=== PATIENT | female | born 1985 | race Caucasian/White ===

== ENCOUNTER 2020-06-27 12:23 | Emergency (ER) | payer OTHER ==
[2020-06-27 12:28] VITALS: TEMP 98.1
--- NOTE | 2020-06-27 12:40 | ED ---
Psych HPI - General Chief Complaint: Anxiety Stated Complaint: Court Order Time Seen by Provider: 06/27/20 12:26 Source: patient, police, RN notes reviewed, old records reviewed Mode of arrival: ambulatory - History of Present Illness Initial Comments: This is a 35-year-old female presenting with PD for psychiatric evaluation patient admits to significant recent family stressors, and patient admits also being very angry as of late. She denies any homicidal or suicidal thoughts currently, denies any drugs or alcohol no history of psychiatric illness. MD Complaint: other ([place] reaction) -: days(s) Associated Psychiatric Symptoms: racing thoughts History of same: No Quality: constant, other (Seems to be improving) Improves With: none Worsens With: none Context: significant life stressor Associated Symptoms: denies other symptoms Treatments Prior to Arrival: placed on mental health hold - Related Data Home Medications Medication Instructions Recorded Confirmed Insulin Glargine,Hum.rec.anlog 48 unit SQ BID 06/27/20 06/27/20 [Basaglar Kwikpen U-100] Insulin Lispro [Admelog] See Protocol SQ AC-TID 06/27/20 06/27/20 Allergies Allergy/AdvReac Type Severity Reaction Status Date / Time No Known Allergies Allergy Verified 06/27/20 13:25 Review of Systems ROS Statement: Those systems with pertinent positive or pertinent negative responses have been documented in the HPI. ROS Other: All systems not noted in ROS Statement are negative. Past Medical History Past Medical History: Diabetes Mellitus History of Any Multi-Drug Resistant Organisms: None Reported Past Surgical History: No Surgical Hx Reported Past Psychological History: No Psychological Hx Reported Smoking Status: Current every day smoker Past Alcohol Use History: None Reported Past Drug Use History: None Reported General Exam Limitations: no limitations General appearance: alert, in no apparent distress Head exam: Present: atraumatic, normocephalic, normal inspection Eye exam: Present: normal appearance, PERRL, EOMI. Absent: scleral icterus, conjunctival injection, periorbital swelling ENT exam: Present: normal exam, mucous membranes moist Neck exam: Present: normal inspection. Absent: tenderness, meningismus, lymphadenopathy Respiratory exam: Present: normal lung sounds bilaterally. Absent: respiratory distress, wheezes, rales, rhonchi, stridor Cardiovascular Exam: Present: regular rate, normal rhythm, normal heart sounds. Absent: systolic murmur, diastolic murmur, rubs, gallop, clicks GI/Abdominal exam: Present: soft, normal bowel sounds. Absent: distended, tenderness, guarding, rebound, rigid Extremities exam: Present: normal inspection, full ROM, normal capillary refill. Absent: tenderness, pedal edema, joint swelling, calf tenderness Back exam: Present: normal inspection Neurological exam: Present: alert, oriented X3, CN II-XII intact Psychiatric exam: Present: normal affect, normal mood Skin exam: Present: warm, dry, intact, normal color. Absent: rash Course Vital Signs 06/27/20 06/27/20 12:26 13:04 Temperature 98.1 F Pulse Rate 114 H Respiratory 20 16 Rate Blood Pressure 120/74 O2 Sat by Pulse 99 Oximetry - Reevaluation(s) Reevaluation #1: 06/27/20 12:48 Medical records reviewed Reevaluation #2: 06/27/20 12:48 Clear for psychiatric evaluation Medical Decision Making - Medical Decision Making 35 female she was seen and evaluated psychiatry needs stable for discharge home not currently homicidal or suicidal - Lab Data Lab Results 06/27/20 06/27/20 Range/Units 13:15 15:40 POC Glucose (mg/dL) 276 H (75-99) mg/dL POC Glu Independent Jeweler ID Shasha Pereyra Urine Opiates Screen Not Detected (NotDetected) Ur Oxycodone Screen Not Detected (NotDetected) Urine Methadone Screen Not Detected (NotDetected) Ur Propoxyphene Screen Not Detected (NotDetected) Ur Barbiturates Screen Not Detected (NotDetected) U Tricyclic Antidepress Not Detected (NotDetected) Ur Phencyclidine Scrn Not Detected (NotDetected) Ur Amphetamines Screen Detected H (NotDetected) U Methamphetamines Scrn Detected H (NotDetected) U Benzodiazepines Scrn Detected H (NotDetected) Urine Cocaine Screen Not Detected (NotDetected) U Marijuana (THC) Screen Not Detected (NotDetected) Disposition Clinical Impression: Acute anxiety Disposition: HOME SELF-CARE Condition: Fair Instructions (If sedation given, give patient instructions): Generalized Anxiety Disorder (ED) Is patient prescribed a controlled substance at d/c from ED?: No Referrals: None,Stated [Primary Care Provider] - 1-2 days
[2020-06-27 13:07] VITALS: RESP 16
[2020-06-27 14:06] LABS: Amphetamine Screen,Urine Detected (NotDetected); Benzodiazepines Screen,Urine Detected (NotDetected); Cocaine Screen,Urine Not Detected (NotDetected); Opiate Screen,Urine Not Detected (NotDetected); Phencyclidine Screen,Urine Not Detected (NotDetected); Urn Cannabinoid Scrn Not Detected (NotDetected)
[2020-06-27 14:07] LABS: Barbiturate Screen,Urine Not Detected (NotDetected); Methadone Screen, Urine Not Detected (NotDetected); Oxycodone Screen, Urine Not Detected (NotDetected); Tricyclic Antidepressant,Urine Not Detected (NotDetected)
[2020-06-27 15:44] LABS: Glucose,Whole Blood 276 mg/dL (75-99)
[2020-06-27 16:02] VITALS: BP 123/77; PULSE 104
== END 2020-06-27 16:00 | disposition home or self-care (01) ==
LOC: EC 12:23
DX: F41.9 Anxiety disorder, unspecified (principal); E11.9 Type 2 diabetes mellitus without complications; F17.200 Nicotine dependence, unspecified, uncomplicated; Z79.4 Long term (current) use of insulin
CPT/HCPCS: 36415; 80306; 82075; 99284

== ENCOUNTER → 2020-10-15 | Outpatient (CLI) | payer OTHER ==
--- NOTE | 2020-10-15 11:13 | MM ---
Reason for exam: clinical finding. History: Family history of breast cancer in aunt at age 41. Physical Findings: Nurse Summary: 1 x 1cm nodule in the left beast at 11 o'clock, a 1 x 1.5cm nodule in the right breast at 12 o'clock, a 1 x 1.5cm nodule in the left breast at 11 o'clock and a 1 x 1cm nodule in the left breast at 1 o'clock (nurse ts). [facility] Diagnostic Mammo w CAD [place] Bilateral CC and MLO view(s) were taken. The breast tissue is extremely dense which could obscure a lesion on mammography. There is no discrete abnormality. These results were verbally communicated with the patient and result sheet given to the patient on 10/15/20. ASSESSMENT: Incomplete: need additional imaging evaluation, BI-RAD 0 RECOMMENDATION: Ultrasound of both breasts. (bilateral palpable)
--- NOTE | 2020-10-15 11:14 | USB ---
Reason for exam: additional evaluation requested from abnormal screening. History: Family history of breast cancer in aunt at age 41. US Breast BILAT Right complete breast ultrasound includes all four quadrants, the retroareolar region and axilla. Finding demonstrates a 0.4 x 0.3 x 0.3cm cystic lesion at 9 o'clock and a 0.5 x 0.4 x 0.6cm cystic cluster at 10 o'clock. Overall fibrocystic change. Left complete breast ultrasound includes all four quadrants, the retroareolar region and axilla. Finding demonstrates no cystic or solid lesion seen. These results were verbally communicated with the patient and result sheet given to the patient on 10/15/20. ASSESSMENT: Benign, BI-RAD 2 RECOMMENDATION: Routine screening mammogram of both breasts at age 40. Manage patient on a clinical basis.
== END | disposition home or self-care (01) ==
LOC: RADMAMWWP 09:10
PROVIDERS: ATTEND Family Medicine
DX: N63.20 Unspecified lump in the left breast, unspecified quadrant (principal); N63.10 Unspecified lump in the right breast, unspecified quadrant; R92.8 Other abnormal and inconclusive findings on diagnostic imaging of breast
CPT/HCPCS: 77066

== ENCOUNTER 2020-10-27 21:57 | Inpatient (IN) | payer MEDICAID, OTHER ==
[2020-10-27 22:35] LABS: Glucose,Whole Blood 313 mg/dL (75-99)
--- NOTE | 2020-10-27 22:46 | ED ---
Psych HPI <Tmo Juarez - Last Filed: 10/28/20 05:15> - General Source: patient, EMS Mode of arrival: EMS <Cecy Mooney - Last Filed: 10/28/20 19:47> - General Chief Complaint: Psychiatric Symptoms Stated Complaint: Mental Health Time Seen by Provider: 10/27/20 22:05 - History of Present Illness Initial Comments: 35yo female with hx of drug abuse presenting for mental health evaluation/delusional thoughts. pt petitioned by daughter who states that her mother has been delusional for years, making false accusations and paranoid behaviors. she states that these delusions are increasing and she petitioned patient. pt denies suicidal or homicidal ideations. denies physical complaints and states she is only here because she is forced to. pt admits to relapsing. Denies overdose or suicide attempt. (Cecy Mooney) - Related Data Home Medications Medication Instructions Recorded Confirmed INSULIN ASPART (NovoLOG) [NovoLOG See Protocol SQ AC-TID 10/27/20 10/27/20 (formulary)] Insulin Glargine [Lantus] 25 unit SQ BID 10/27/20 10/27/20 Allergies Allergy/AdvReac Type Severity Reaction Status Date / Time No Known Allergies Allergy Verified 10/27/20 23:19 Review of Systems ROS Other: All systems not noted in ROS Statement are negative. <VickTom sanches - Last Filed: 10/28/20 05:15> ROS Other: All systems not noted in ROS Statement are negative. <Cecy Mooney - Last Filed: 10/28/20 19:47> ROS Statement: Those systems with pertinent positive or pertinent negative responses have been documented in the HPI. Past Medical History Past Medical History: Diabetes Mellitus History of Any Multi-Drug Resistant Organisms: None Reported Past Surgical History: No Surgical Hx Reported Past Psychological History: No Psychological Hx Reported Smoking Status: Current every day smoker Past Alcohol Use History: None Reported Past Drug Use History: Methamphetamine <Cecy Mooney - Last Filed: 10/28/20 19:47> General Exam Limitations: no limitations <Cecy Mooney - Last Filed: 10/28/20 19:47> - General Exam Comments Initial Comments: General: The patient is awake and alert, in no distress Eye: Pupils are equal, round and reactive to light, extra-ocular movements are intact. No nystagmus. There is normal conjunctiva bilaterally. No signs of icterus. Ears, nose, mouth and throat: There are moist mucous membranes and no oral lesions. Neck: The neck is supple, there is no tenderness or JVD. Cardiovascular: There is a regular rate and rhythm. No murmur, rub or gallop is appreciated. Respiratory: Lungs are clear to auscultation, respirations are non-labored, breath sounds are equal. No wheezes, stridor, rales, or rhonchi. Gastrointestinal: Soft, non-distended, non-tender abdomen without masses or organomegaly noted. There is no rebound or guarding present. Musculoskeletal: Normal ROM, no tenderness. Strength 5/5. Sensation intact. Radial pulses equal bilaterally 2+. Neurological: A&O x 3. CN II-XII intact, There are no obvious motor or sensory deficits. Coordination appears grossly intact. Speech is normal. Skin: Skin is warm and dry and no rashes or lesions are noted. Psychiatric: Cooperative, delusional thoughts, thinks people are altering at home camera footage ect (Cecy Mooney) Course <Cecy Mooney - Last Filed: 10/28/20 19:47> Vital Signs 10/27/20 10/28/20 10/28/20 22:15 03:25 05:45 Temperature 98.1 F 97.3 F L Pulse Rate 113 H 98 99 Respiratory 18 18 18 Rate Blood Pressure 149/81 104/59 119/56 O2 Sat by Pulse 96 96 96 Oximetry - Reevaluation(s) Reevaluation #1: pt hydrated, given insulin, pt glucose improved. gap was initially wnl. suspected starvation ketosis rather than DKA or HUS. pt medically cleared eps, discussed case with Dr. Juarez who is agreeable. 10/28/20 01:39 (Cecy Mooney) Medical Decision Making - Lab Data Result diagrams: 10/27/20 23:12 10/27/20 23:12 <Tom Juarez - Last Filed: 10/28/20 05:15> - Lab Data Result diagrams: 10/28/20 12:32 10/28/20 12:32 <Cecy Mooney - Last Filed: 10/28/20 19:47> - Medical Decision Making I did see the patient with intent of fine clinical certification, patient is not forthcoming at exam (Tom Juarez) - Lab Data Lab Results 10/27/20 10/27/20 10/27/20 Range/Units 22:33 22:36 22:36 WBC (3.8-10.6) k/uL RBC (3.80-5.40) m/uL Hgb (11.4-16.0) gm/dL Hct (34.0-46.0) % MCV (80.0-100.0) fL MCH (25.0-35.0) pg MCHC (31.0-37.0) g/dL RDW (11.5-15.5) % Plt Count (150-450) k/uL MPV Neutrophils % % Lymphocytes % % Monocytes % % Eosinophils % % Basophils % % Neutrophils # (1.3-7.7) k/uL Lymphocytes # (1.0-4.8) k/uL Monocytes # (0-1.0) k/uL Eosinophils # (0-0.7) k/uL Basophils # (0-0.2) k/uL Sodium (137-145) mmol/L Potassium (3.5-5.1) mmol/L Chloride (98-107) mmol/L Carbon Dioxide (22-30) mmol/L Anion Gap mmol/L BUN (7-17) mg/dL Creatinine (0.52-1.04) mg/dL Est GFR (CKD-EPI)AfAm (>60 ml/min/1.73 sqM) Est GFR (CKD-EPI)NonAf (>60 ml/min/1.73 sqM) Glucose (74-99) mg/dL POC Glucose (mg/dL) 313 H (75-99) mg/dL POC Glu Obstetrics Gyn ID Diana Peterson Calcium (8.4-10.2) mg/dL Phosphorus (2.5-4.5) mg/dL Magnesium (1.6-2.3) mg/dL Total Bilirubin (0.2-1.3) mg/dL AST (14-36) U/L ALT (4-34) U/L Alkaline Phosphatase (38-126) U/L Total Protein (6.3-8.2) g/dL Albumin (3.5-5.0) g/dL Urine Color Yellow Urine Appearance Cloudy H (Clear) Urine pH 5.5 (5.0-8.0) Ur Specific [place] 1.040 H (1.001-1.035) Urine Protein Trace H (Negative) Urine Glucose (UA) 4+ H (Negative) Urine Ketones 2+ H (Negative) Urine Blood Negative (Negative) Urine Nitrite Positive H (Negative) Urine Bilirubin Negative (Negative) Urine Urobilinogen <2.0 (<2.0) mg/dL Ur Leukocyte Esterase Trace H (Negative) Urine RBC 1 (0-5) /hpf Urine WBC 12 H (0-5) /hpf Ur Squamous Epith Cells 6 H (0-4) /hpf Urine Bacteria Many H (None) /hpf Urine Mucus Moderate H (None) /hpf Urine HCG, Qual Not Detected (Not Detectd) Urine Opiates Screen Not Detected (NotDetected) Ur Oxycodone Screen Not Detected (NotDetected) Urine Methadone Screen Not Detected (NotDetected) Ur Propoxyphene Screen Not Detected (NotDetected) Ur Barbiturates Screen Not Detected (NotDetected) U Tricyclic Antidepress Not Detected (NotDetected) Ur Phencyclidine Scrn Not Detected (NotDetected) Ur Amphetamines Screen Detected H (NotDetected) U Methamphetamines Scrn Detected H (NotDetected) U Benzodiazepines Scrn Not Detected (NotDetected) Urine Cocaine Screen Not Detected (NotDetected) U Marijuana (THC) Screen Not Detected (NotDetected) Acetone, Qual (Negative) Coronavirus (PCR) (Not Detectd) 10/27/20 10/27/20 10/28/20 Range/Units 23:12 23:12 00:06 WBC 9.6 (3.8-10.6) k/uL RBC 4.90 (3.80-5.40) m/uL Hgb 14.1 (11.4-16.0) gm/dL Hct 42.3 (34.0-46.0) % MCV 86.3 (80.0-100.0) fL MCH 28.8 (25.0-35.0) pg MCHC 33.4 (31.0-37.0) g/dL RDW 12.6 (11.5-15.5) % Plt Count 389 (150-450) k/uL MPV 7.3 Neutrophils % 69 % Lymphocytes % 25 % Monocytes % 4 % Eosinophils % 1 % Basophils % 0 % Neutrophils # 6.6 (1.3-7.7) k/uL Lymphocytes # 2.4 (1.0-4.8) k/uL Monocytes # 0.4 (0-1.0) k/uL Eosinophils # 0.1 (0-0.7) k/uL Basophils # 0.0 (0-0.2) k/uL Sodium 134 L (137-145) mmol/L Potassium 4.1 (3.5-5.1) mmol/L Chloride 104 (98-107) mmol/L Carbon Dioxide 21 L (22-30) mmol/L Anion Gap 9 mmol/L BUN 15 (7-17) mg/dL Creatinine 0.42 L (0.52-1.04) mg/dL Est GFR (CKD-EPI)AfAm >90 (>60 ml/min/1.73 sqM) Est GFR (CKD-EPI)NonAf >90 (>60 ml/min/1.73 sqM) Glucose 282 H (74-99) mg/dL POC Glucose (mg/dL) 239 H (75-99) mg/dL POC Glu Obstetrics Gyn ID Patricia Upton Calcium 9.7 (8.4-10.2) mg/dL Phosphorus 3.6 (2.5-4.5) mg/dL Magnesium 1.7 (1.6-2.3) mg/dL Total Bilirubin 0.5 (0.2-1.3) mg/dL AST 21 (14-36) U/L ALT 19 (4-34) U/L Alkaline Phosphatase 141 H (38-126) U/L Total Protein 7.7 (6.3-8.2) g/dL Albumin 4.3 (3.5-5.0) g/dL Urine Color Urine Appearance (Clear) Urine pH (5.0-8.0) Ur Specific [place] (1.001-1.035) Urine Protein (Negative) Urine Glucose (UA) (Negative) Urine Ketones (Negative) Urine Blood (Negative) Urine Nitrite (Negative) Urine Bilirubin (Negative) Urine Urobilinogen (<2.0) mg/dL Ur Leukocyte Esterase (Negative) Urine RBC (0-5) /hpf Urine WBC (0-5) /hpf Ur Squamous Epith Cells (0-4) /hpf Urine Bacteria (None) /hpf Urine Mucus (None) /hpf Urine HCG, Qual (Not Detectd) Urine Opiates Screen (NotDetected) Ur Oxycodone Screen (NotDetected) Urine Methadone Screen (NotDetected) Ur Propoxyphene Screen (NotDetected) Ur Barbiturates Screen (NotDetected) U Tricyclic Antidepress (NotDetected) Ur Phencyclidine Scrn (NotDetected) Ur Amphetamines Screen (NotDetected) U Methamphetamines Scrn (NotDetected) U Benzodiazepines Scrn (NotDetected) Urine Cocaine Screen (NotDetected) U Marijuana (THC) Screen (NotDetected) Acetone, Qual Positive (Negative) Coronavirus (PCR) (Not Detectd) 10/28/20 10/28/20 Range/Units 01:33 04:26 WBC (3.8-10.6) k/uL RBC (3.80-5.40) m/uL Hgb (11.4-16.0) gm/dL Hct (34.0-46.0) % MCV (80.0-100.0) fL MCH (25.0-35.0) pg MCHC (31.0-37.0) g/dL RDW (11.5-15.5) % Plt Count (150-450) k/uL MPV Neutrophils % % Lymphocytes % % Monocytes % % Eosinophils % % Basophils % % Neutrophils # (1.3-7.7) k/uL Lymphocytes # (1.0-4.8) k/uL Monocytes # (0-1.0) k/uL Eosinophils # (0-0.7) k/uL Basophils # (0-0.2) k/uL Sodium (137-145) mmol/L Potassium (3.5-5.1) mmol/L Chloride (98-107) mmol/L Carbon Dioxide (22-30) mmol/L Anion Gap mmol/L BUN (7-17) mg/dL Creatinine (0.52-1.04) mg/dL Est GFR (CKD-EPI)AfAm (>60 ml/min/1.73 sqM) Est GFR (CKD-EPI)NonAf (>60 ml/min/1.73 sqM) Glucose (74-99) mg/dL POC Glucose (mg/dL) 160 H (75-99) mg/dL POC Glu Obstetrics Gyn ID Patricia Upton Calcium (8.4-10.2) mg/dL Phosphorus (2.5-4.5) mg/dL Magnesium (1.6-2.3) mg/dL Total Bilirubin (0.2-1.3) mg/dL AST (14-36) U/L ALT (4-34) U/L Alkaline Phosphatase (38-126) U/L Total Protein (6.3-8.2) g/dL Albumin (3.5-5.0) g/dL Urine Color Urine Appearance (Clear) Urine pH (5.0-8.0) Ur Specific [place] (1.001-1.035) Urine Protein (Negative) Urine Glucose (UA) (Negative) Urine Ketones (Negative) Urine Blood (Negative) Urine Nitrite (Negative) Urine Bilirubin (Negative) Urine Urobilinogen (<2.0) mg/dL Ur Leukocyte Esterase (Negative) Urine RBC (0-5) /hpf Urine WBC (0-5) /hpf Ur Squamous Epith Cells (0-4) /hpf Urine Bacteria (None) /hpf Urine Mucus (None) /hpf Urine HCG, Qual (Not Detectd) Urine Opiates Screen (NotDetected) Ur Oxycodone Screen (NotDetected) Urine Methadone Screen (NotDetected) Ur Propoxyphene Screen (NotDetected) Ur Barbiturates Screen (NotDetected) U Tricyclic Antidepress (NotDetected) Ur Phencyclidine Scrn (NotDetected) Ur Amphetamines Screen (NotDetected) U Methamphetamines Scrn (NotDetected) U Benzodiazepines Scrn (NotDetected) Urine Cocaine Screen (NotDetected) U Marijuana (THC) Screen (NotDetected) Acetone, Qual (Negative) Coronavirus (PCR) Not Detected (Not Detectd) Disposition <Tom Juarez - Last Filed: 10/28/20 05:15> Is patient prescribed a controlled substance at d/c from ED?: No Time of Disposition: 19:46 Decision to Admit Reason: Admit from EC Decision Date: 10/28/20 Decision Time: 19:46 <Cecy Mooney - Last Filed: 10/28/20 19:47> Clinical Impression: Psychosis Disposition: TRANSFER TO PSYCH HOSP/UNIT Condition: Serious
[2020-10-27 22:48] LABS: Appearance,Urine Cloudy (Clear); Bacteria,Urine Many /hpf; Bilirubin,Urine Negative (Negative); Blood,Urine Negative (Negative); Color,Urine Yellow; Glucose,Urine (UA) 4+ (Negative); Leukocyte Esterase,Urine Trace (Negative); Mucus,Urine Moderate /hpf; Nitrite,Urine Positive (Negative); PH, Urine 5.5 (5.0-8.0); Protein,Urine Trace (Negative); RBC,Urine 1 /hpf (0-5); Squamous Epithelial Cell,Urine 6 /hpf (0-4); Urobilinogen,Urine <2.0 mg/dL (<2.0); WBC,Urine 12 /hpf (0-5)
[2020-10-27 22:55] LABS: Ketones,Urine 2+ (Negative)
[2020-10-27] MEDS ORDERED: cefTRIAXone IN SWFI 1,000 MG/10 ML SYRINGE IVP STA (22:57)
[2020-10-27] MEDS ORDERED: SODIUM CHLORIDE 0.9% 500 ML 500 ML IV ONE (23:01)
[2020-10-27] MEDS ORDERED: INSULIN REGULAR 100 UNIT/ML VIAL SQ ONE (23:01)
[2020-10-27] MEDS ORDERED: SODIUM CHLORIDE 0.9% 1,000 ML IV ONE (23:01)
[2020-10-27] MEDS ORDERED: SODIUM CHLORIDE 0.9% 1,000 ML IV SCH (23:15)
[2020-10-27 23:18] LABS: Cocaine Screen,Urine Not Detected (NotDetected); Opiate Screen,Urine Not Detected (NotDetected); Phencyclidine Screen,Urine Not Detected (NotDetected); Urn Cannabinoid Scrn Not Detected (NotDetected)
[2020-10-27 23:19] LABS: Amphetamine Screen,Urine Detected (NotDetected); Barbiturate Screen,Urine Not Detected (NotDetected); Benzodiazepines Screen,Urine Not Detected (NotDetected); Methadone Screen, Urine Not Detected (NotDetected); Oxycodone Screen, Urine Not Detected (NotDetected); Tricyclic Antidepressant,Urine Not Detected (NotDetected)
[2020-10-27 23:30] LABS: ALT 19 U/L (4-34); AST 21 U/L (14-36); African American GFR (CKD) >90 (>60 ml/min/1.73 sqM); Albumin 4.3 g/dL (3.5-5.0); Alkaline Phosphatase 141 U/L (38-126); Anion Gap 9 mmol/L; Blood Urea Nitrogen 15 mg/dL (7-17); Calcium 9.7 mg/dL (8.4-10.2); Carbon Dioxide 21 mmol/L (22-30); Chloride 104 mmol/L (98-107); Glucose 282 mg/dL (74-99); Magnesium 1.7 mg/dL (1.6-2.3); Non-African American GFR(CKD) >90 (>60 ml/min/1.73 sqM); Phosphorus 3.6 mg/dL (2.5-4.5); Potassium 4.1 mmol/L (3.5-5.1); Sodium 134 mmol/L (137-145); Total Bilirubin 0.5 mg/dL (0.2-1.3); Total Protein 7.7 g/dL (6.3-8.2)
[2020-10-27 23:32] LABS: Basophils % (A) 0 %; Eosinophils # (A) 0.1 k/uL (0-0.7); Eosinophils % (A) 1 %; HCT 42.3 % (34.0-46.0); HGB 14.1 gm/dL (11.4-16.0); Lymphocytes # (A) 2.4 k/uL (1.0-4.8); Lymphocytes % (A) 25 %; MCH 28.8 pg (25.0-35.0); MCHC 33.4 g/dL (31.0-37.0); MCV 86.3 fL (80.0-100.0); Mean Platelet Volume 7.3; Monocytes # (A) 0.4 k/uL (0-1.0); Monocytes % (A) 4 %; Neutrophils # (A) 6.6 k/uL (1.3-7.7); Neutrophils % (A) 69 %; Platelet Count 389 k/uL (150-450); RDW 12.6 % (11.5-15.5); WBC 9.6 k/uL (3.8-10.6)
[2020-10-27] MEDS ORDERED: INSULIN REGULAR 100 UNIT/ML VIAL IV ONE (23:57)
[2020-10-28 00:07] LABS: Glucose,Whole Blood 239 mg/dL (75-99)
[2020-10-28 01:34] LABS: Glucose,Whole Blood 160 mg/dL (75-99)
[2020-10-28] MEDS ORDERED: MAG HYDROX/AL HYDROX/SIMETH 30 ML CUP PO PRN (05:21)
[2020-10-28] MEDS ORDERED: ACETAMINOPHEN TAB 325 MG TAB PO PRN (05:21)
[2020-10-28] MEDS ORDERED: MAGNESIUM HYDROXIDE 2,400 MG/10 ML CUP PO PRN (05:21)
[2020-10-28] MEDS ORDERED: LORazepam 1 MG TAB PO PRN (05:21)
[2020-10-28] MEDS ORDERED: haloperidoL 5 MG TAB PO PRN (05:25)
[2020-10-28] MEDS ORDERED: HALOPERIDOL LACTATE 5 MG/ML 1 ML VIAL IM PRN (05:25)
[2020-10-28] MEDS ORDERED: LORazepam 2 MG/ML INJ IM PRN (05:25)
[2020-10-28 06:25] VITALS: RESP 16
[2020-10-28 07:47] LABS: Glucose,Whole Blood 213 mg/dL (75-99)
[2020-10-28] MEDS: INSULIN DETEMIR (LEVEMIR) 100 UNIT/ML SYR SQ SCH ×2 (09:07→20:27)
[2020-10-28] MEDS: NICOTINE 14MG/24HR PATCH TRANSDERM SCH (09:07)
[2020-10-28 12:39] LABS: Glucose,Whole Blood 187 mg/dL (75-99)
[2020-10-28] MEDS: INSULIN ASPART (NovoLOG) 100 UNIT/ML VIAL SQ SCH ×2 (12:39→17:45)
[2020-10-28 13:10] LABS: Basophils % (A) 1 %; Eosinophils % (A) 1 %; HCT 41.7 % (34.0-46.0); Lymphocytes # (A) 2.5 k/uL (1.0-4.8); Lymphocytes % (A) 39 %; MCH 29.6 pg (25.0-35.0); MCHC 33.7 g/dL (31.0-37.0); MCV 87.8 fL (80.0-100.0); Monocytes # (A) 0.3 k/uL (0-1.0); Monocytes % (A) 5 %; Neutrophils # (A) 3.4 k/uL (1.3-7.7); Neutrophils % (A) 53 %; Platelet Count 370 k/uL (150-450); RBC 4.74 m/uL (3.80-5.40); RDW 12.5 % (11.5-15.5); WBC 6.4 k/uL (3.8-10.6)
[2020-10-28 13:17] LABS: ALT 18 U/L (4-34); AST 18 U/L (14-36); African American GFR (CKD) >90 (>60 ml/min/1.73 sqM); Albumin 3.7 g/dL (3.5-5.0); Alkaline Phosphatase 110 U/L (38-126); Anion Gap 6 mmol/L; Blood Urea Nitrogen 13 mg/dL (7-17); Calcium 8.9 mg/dL (8.4-10.2); Carbon Dioxide 23 mmol/L (22-30); Chloride 107 mmol/L (98-107); Glucose 169 mg/dL (74-99); Non-African American GFR(CKD) >90 (>60 ml/min/1.73 sqM); Potassium 4.1 mmol/L (3.5-5.1); Sodium 136 mmol/L (137-145); Total Bilirubin 0.5 mg/dL (0.2-1.3); Total Protein 6.8 g/dL (6.3-8.2)
[2020-10-28] MEDS: ESCITALOPRAM 20 MG TAB PO SCH (14:21)
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
[2020-10-28 17:48] LABS: Glucose,Whole Blood 212 mg/dL (75-99)
[2020-10-28 20:22] LABS: Glucose,Whole Blood 269 mg/dL (75-99)
[2020-10-29] MEDS: INSULIN ASPART (NovoLOG) 100 UNIT/ML VIAL SQ SCH ×3 (08:02→17:42)
[2020-10-29 08:04] LABS: Glucose,Whole Blood 100 mg/dL (75-99)
[2020-10-29] MEDS: ESCITALOPRAM 20 MG TAB PO SCH (08:17)
[2020-10-29] MEDS: INSULIN DETEMIR (LEVEMIR) 100 UNIT/ML SYR SQ SCH ×2 (08:17→20:44)
[2020-10-29] MEDS: NICOTINE 14MG/24HR PATCH TRANSDERM SCH (08:17)
[2020-10-29 08:49] LABS: Basophils # (A) 0.1 k/uL (0-0.2); Basophils % (A) 1 %; Eosinophils # (A) 0.1 k/uL (0-0.7); Eosinophils % (A) 1 %; HCT 45.9 % (34.0-46.0); HGB 15.4 gm/dL (11.4-16.0); Lymphocytes # (A) 4.1 k/uL (1.0-4.8); Lymphocytes % (A) 32 %; MCH 29.7 pg (25.0-35.0); MCHC 33.4 g/dL (31.0-37.0); MCV 88.7 fL (80.0-100.0); Mean Platelet Volume 7.1; Monocytes # (A) 0.5 k/uL (0-1.0); Monocytes % (A) 4 %; Neutrophils # (A) 7.6 k/uL (1.3-7.7); Neutrophils % (A) 60 %; Platelet Count 449 k/uL (150-450); RBC 5.18 m/uL (3.80-5.40); RDW 12.4 % (11.5-15.5); WBC 12.6 k/uL (3.8-10.6)
[2020-10-29 08:59] LABS: ALT 18 U/L (4-34); AST 22 U/L (14-36); African American GFR (CKD) >90 (>60 ml/min/1.73 sqM); Albumin 4.2 g/dL (3.5-5.0); Alkaline Phosphatase 114 U/L (38-126); Anion Gap 9 mmol/L; Bilirubin, Delta 0.3 mg/dL (0.0-0.2); Bilirubin,Unconjugated 0.1 mg/dL (0.0-1.1); Blood Urea Nitrogen 14 mg/dL (7-17); Calcium 9.2 mg/dL (8.4-10.2); Carbon Dioxide 21 mmol/L (22-30); Chloride 107 mmol/L (98-107); Cholesterol 218 mg/dL (<200); Glucose 108 mg/dL (74-99); HDL Cholesterol 48 mg/dL (40-60); LDL Cholesterol,Calculated 149 mg/dL (0-99); Non-African American GFR(CKD) >90 (>60 ml/min/1.73 sqM); Potassium 4.3 mmol/L (3.5-5.1); Sodium 137 mmol/L (137-145); Total Bilirubin 0.4 mg/dL (0.2-1.3); Total Protein 7.7 g/dL (6.3-8.2); Triglycerides 105 mg/dL (<150)
[2020-10-29 12:02] LABS: T4, Free (Free Thyroxine) 1.32 ng/dL (0.78-2.19)
[2020-10-29 12:06] LABS: Basophils % (A) 0 %; Eosinophils # (A) 0.1 k/uL (0-0.7); Eosinophils % (A) 1 %; HCT 42.5 % (34.0-46.0); Lymphocytes # (A) 2.9 k/uL (1.0-4.8); Lymphocytes % (A) 35 %; MCH 28.8 pg (25.0-35.0); MCV 87.5 fL (80.0-100.0); Mean Platelet Volume 6.8; Monocytes # (A) 0.3 k/uL (0-1.0); Monocytes % (A) 3 %; Neutrophils % (A) 60 %; Platelet Count 390 k/uL (150-450); RBC 4.86 m/uL (3.80-5.40); RDW 12.7 % (11.5-15.5); WBC 8.3 k/uL (3.8-10.6)
[2020-10-29 13:10] LABS: Glucose,Whole Blood 230 mg/dL (75-99)
[2020-10-29 14:18] LABS: Hemoglobin A1C 10.8 % (4.0-6.0)
[2020-10-29 17:34] LABS: Glucose,Whole Blood 244 mg/dL (75-99)
--- NOTE | 2020-10-29 17:49 | PN ---
PROGRESS NOTE DATE OF SERVICE: 10/29/2020 CHIEF COMPLAINT: The patient was having paranoid delusions. She had relapsed to substance abuse. She made threats to kill herself, as documented in the petition. INTERVAL HISTORY: The patient has been doing fair. She had a quiet day yesterday. She spent a fair amount of time in her room. She will come out in the day area. She tends to have a reserved manner. She did not attend groups yesterday. She slept fairly well last night. Today she has been up. Again she has been in her room. She has not attended groups today. When I talked to her she said she was doing fair. She had no problems with Lexapro, which she has been taking at home. She continues to downplay the issues on the petition. She asserts that what has been documented is not accurate; on the other hand, the patient said she is willing to be cooperative with care and willing to engage in a long-term outpatient treatment plan. She is not opposed to what sounds like a deferral if the petition process continues. She tolerates her psychotropic medications. MENTAL STATUS: The patient was in her room. She sat up in bed. She gave fair eye contact. Psychomotor activity was a little slowed. She answered questions appropriately. She did not say a lot. Her thoughts were clear and coherent. Her affect was blunted, her mood quiet and reserved. It was difficult to assess if she was distressed to any degree. There was no indication of outward signs of thought disorder. Whether or not she continues with paranoid thinking is an uncertainty. She voiced no thoughts of harm. Cognition was clear. ASSESSMENT: I will continue the current diagnosis and treatment plan. The patient continues on petition, given what had been documented by the daughter. I made an effort to call the daughter, with whom she lives, and the grandfather with whom she lives. According to the petition, the daughter indicated that the grandfather had been a witness to the patient's statements around self-harm. I also made an effort to call the aunt, who is listed by the patient as a person to notify. I did not receive any return calls from those three people. In order to get corroborative information, it is critical to be able to make some contact with these people. For the patient's part, she did not present with outward signs of paranoia, delusions, thought disorder or indications of risk to harming herself. She does acknowledge that she relapsed, though the information we had is that she used methamphetamine three different times in the past two weeks after having two years of sobriety. It is necessary to make the effort to corroborate the patient's view, which would allow us to have the patient sign in voluntarily versus getting corroborative information that might support the petition. Contacts need to be made with daughter, Yaneth Ravi, petitioner ([phone]), Rogelio Muñoz, grandfather, who owns the house where all live and an apparent witness ([phone]), or Melina Muñoz, aunt and patient's contact center manager ([phone]). We need to continue to make efforts in that regard. We will focus on stabilization and discharge planning. MMRIC / OSMANIN: [id number] / MTDD
[2020-10-29 20:05] LABS: Glucose,Whole Blood 302 mg/dL (75-99)
--- NOTE | 2020-10-29 23:53 | PN ---
PROGRESS NOTE 35-year-old white female with white count elevated from 4 up to 12. Urinary tract infection will have to be ruled out. CARDIOVASCULAR: S1, S2. Lungs clear. ASSESSMENT: 1. Psychosis. 2. Depression. 3. Insulin-dependent diabetes mellitus. 4. Leukocytosis. 5. Rule out urinary tract infection. 6. Please see further orders. MMODL / IJN: [id number] /
[2020-10-30 07:29] VITALS: BP 127/78; PULSE 92
[2020-10-30 07:57] LABS: Glucose,Whole Blood 105 mg/dL (75-99)
[2020-10-30] MEDS: INSULIN DETEMIR (LEVEMIR) 100 UNIT/ML SYR SQ SCH ×2 (08:01→21:18)
[2020-10-30] MEDS: NICOTINE 14MG/24HR PATCH TRANSDERM SCH (08:28)
[2020-10-30] MEDS: ESCITALOPRAM 20 MG TAB PO SCH (08:28)
[2020-10-30] MEDS: INSULIN ASPART (NovoLOG) 100 UNIT/ML VIAL SQ SCH ×3 (08:29→17:52)
--- NOTE | 2020-10-30 09:55 | P.PN ---
Progress Note - Text Progress Note Date: 10/30/20 Interval History: Patient was seen resting in bed and was directable and agreeable to speak with the internal communications writer in her room with no one else present. Patient reports that she is currently expressing a headache but is otherwise doing okay. She is reporting no suicidal or homicidal ideation, intention, and/or plan. She is not reporting any auditory or visual hallucinations. Patient denies the events that occurred in her petition but also states that she is uncertain what occurred as she was under the influence at that time. She is currently not reporting any paranoia or delusions. She states that she would be returning home with her daughter and grandfather. She has been taking the Lexapro and tolerating the medication well aside from this headache. She remains mainly isolative to her room. She does express interest in quitting drugs but is not interested in going to inpatient rehab at this time. Mental Status Exam: General Appearance: Patient appears to be stated age is alert, directable, and cooperative. Patient appears older than stated age. Behavior: Patient is resting in bed without any agitated behavior. Psychomotor activity is normal. Eye contact is fair. Speech: Patient's speech is fluent and nonpressured. Mood/Affect: Mood is improving mildly, affect is congruent and constricted. Suicidality/Homicidality: Patient denies having any suicidal or homicidal ideation intent or plan. Perceptions: Patient denies any visual hallucinations and denies any auditory hallucinations Though content/process: There is no evidence of any delusional thought content and thought process is linear and goal-directed. Memory and concentration: AOX3, grossly intact for the purposes of this session Judgment and insight: Improving mildly Assessment Major depressive disorder Methamphetamine abuse Nicotine dependence Plan: -Patient continues to meet criteria for inpatient psychiatric admission for symptom stabilization and safety. Patient deferred. -Medications: Continue Lexapro 20 mg by mouth daily -When necessary Ativan and Haldol for agitation/aggression. -NRT - nicotine patch -SW on board for discharge planning. Encouraged the patient to participate in milieu.
[2020-10-30 10:51] VITALS: BMI 22.3
[2020-10-30] MEDS: NITROFURANTOIN MONOHYD/M-CRYST 100 MG CAP PO SCH ×2 (12:35→20:28)
[2020-10-30 12:36] LABS: Glucose,Whole Blood 157 mg/dL (75-99)
[2020-10-30 14:11] VITALS: TEMP 97.2
[2020-10-30 17:48] LABS: Glucose,Whole Blood 259 mg/dL (75-99)
[2020-10-30 20:53] LABS: Glucose,Whole Blood 348 mg/dL (75-99)
[2020-10-31 07:58] LABS: Glucose,Whole Blood 180 mg/dL (75-99)
[2020-10-31] MEDS: INSULIN DETEMIR (LEVEMIR) 100 UNIT/ML SYR SQ SCH (08:17)
[2020-10-31] MEDS: NICOTINE 14MG/24HR PATCH TRANSDERM SCH (08:17)
[2020-10-31] MEDS: ESCITALOPRAM 20 MG TAB PO SCH (08:18)
[2020-10-31] MEDS: INSULIN ASPART (NovoLOG) 100 UNIT/ML VIAL SQ SCH (08:18)
[2020-10-31] MEDS: NITROFURANTOIN MONOHYD/M-CRYST 100 MG CAP PO SCH (08:18)
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
== END 2020-10-31 12:23 | disposition home or self-care (01) | DRG 885 ==
LOC: EC 21:57 → 3MHU 10-28 05:20
PROVIDERS: ADMIT Psychiatry & Neurology Psychiatry; ATTEND Psychiatry & Neurology Psychiatry
DX: F32.3 Major depressive disorder, single episode, severe with psychotic features (principal); N39.0 Urinary tract infection, site not specified; E10.9 Type 1 diabetes mellitus without complications; F15.10 Other stimulant abuse, uncomplicated; F17.200 Nicotine dependence, unspecified, uncomplicated; F43.22 Adjustment disorder with anxiety; F41.9 Anxiety disorder, unspecified; D72.829 Elevated white blood cell count, unspecified; Z20.828 Contact with and (suspected) exposure to other viral communicable diseases; Z79.4 Long term (current) use of insulin
CPT/HCPCS: 36415; 80053; 80061; 80076; 80306; 81001; 81025; 82009; 82075; 83036; 83735; 84100; 84439; 84443; 84481; 85025; 87077; 87086; 87186; 87635; 96361; 96374; 99285

== ENCOUNTER → 2020-12-17 | Outpatient (CLI) | payer OTHER | END | disposition home or self-care (01) | LOC: LABWHC1 16:01 | PROVIDERS: ATTEND Family Medicine | DX: B89 Unspecified parasitic disease (principal); Z79.899 Other long term (current) drug therapy | CPT/HCPCS: 36415; 87522 ==

== ENCOUNTER → 2022-12-04 | Outpatient (CLI) | payer OTHER ==
--- NOTE | 2022-12-04 07:54 | MM ---
Reason for Exam: Clinical finding. Last mammogram was performed 2 year(s) and 1 month(s) ago. Patient History: Menarche at age 12. First Full-Term at age 17. Ovarian cancer, age 17. Maternal aunt had breast cancer, age 41. Maternal grandmother had ovarian cancer, age 81. Last menstrual period: 11/13/2022 Risk Values: Aparna 5 year model risk: 0.3%. NCI Lifetime model risk: 7.4%. Tissue Density: The breast tissue is heterogeneously dense. This may lower the sensitivity of mammography. Findings: Analyzed By CAD. There are multiple areas of asymmetric density which remain unchanged. An asymmetric density anterior subareolar right MLO view Palpable marker along the right upper outer quadrant. Overall Assessment: Incomplete: need additional imaging evaluation, BI-RAD 0 Management: Diagnostic Breast Ultrasound of the right breast. Electronically signed and approved by: Misael Arreguin M.D. Radiologist
--- NOTE | 2022-12-04 13:16 | USB ---
Patient History: Menarche at age 12. First Full-Term at age 17. Ovarian cancer, age 17. Maternal aunt had breast cancer, age 41. Maternal grandmother had ovarian cancer, age 81. Risk Values: Aparna 5 year model risk: 0.3%. NCI Lifetime model risk: 7.4%. Technique: Method: Whole Breast Handheld. Prior Study Comparison: 10/15/2020 Bilateral Diagnostic Mammogram, [facility]. Findings: The whole breast of the right breast, the axilla of the right breast and the retroareolar of the right breast were scanned. A complete US of all four quadrants of the right breast, axilla, and retro-areolar region were reviewed. No solid or cystic masses are identified. Very dense tissues are present throughout. No solid or cystic lesion. Particular attention to the patient upper outer quadrant palpable site. No axillary lymphadenopathy. Overall Assessment: Negative, BI-RAD 1 Management: Screening Mammogram of both breasts at age 40. unless there is a clinical indication to start sooner. Patient should continue monthly self breast exams. If any enlarging palpable abnormality is encountered, the patient can be rescanned. This exam should not preclude additional follow-up of suspicious palpable abnormalities. Results were given to the patient verbally at the time of exam. Electronically signed and approved by: Misael Arreguin M.D. Radiologist
== END | disposition home or self-care (01) ==
LOC: RADMAMWWP 07:22
PROVIDERS: ATTEND Family Medicine
DX: N64.4 Mastodynia (principal); N63.0 Unspecified lump in unspecified breast; Z80.3 Family history of malignant neoplasm of breast
CPT/HCPCS: 77066; 76641; G0279; 77062

== ENCOUNTER 2023-04-19 23:58 | Emergency (ER) | payer OTHER ==
[2023-04-20] MEDS ORDERED: HYDROmorphone 1 MG/ML 1 ML SYRINGE IM STA (00:33)
[2023-04-20] MEDS ORDERED: ACET/COD 300 MG/30 MG STARTER PACK 6 TAB BTL PO STA (01:13)
--- NOTE | 2023-04-20 01:13 | ED ---
Back Pain HPI - General Chief Complaint: Back Pain/Injury Stated Complaint: Fall Time Seen by Provider: 04/20/23 00:31 Source: patient, RN notes reviewed Mode of arrival: ambulatory Limitations: no limitations - History of Present Illness Initial Comments: 38-year-old female presents emergency Department chief complaint low back pain. Patient states she was leaving her house she states her steps very Cipro may become wet. Patient states she slipped on them falling onto her low back she has an abrasion her low back tetanus is up-to-date. She has any bowel, bladder and incontinence retention. Denies any saddle anesthesias or lower extremity paresthesias. She states she has pain localized only over the area of trauma. No head injury no loss conscious. - Related Data Previous Rx's Medication Instructions Recorded Escitalopram [Lexapro] 20 mg PO DAILY 30 Days tab 10/31/20 INSULIN ASPART (NovoLOG) [NovoLOG See Protocol SQ AC-TID 30 Days 10/31/20 (formulary)] vial Insulin Glargine [Lantus Vial] 25 unit SQ BID 30 Days vial 10/31/20 Nicotine 14Mg/24Hr Patch [Habitrol] 1 patch TRANSDERM DAILY 30 Days 10/31/20 patch Nitrofurantoin Monohyd/M-Cryst 100 mg PO BID 8 Days cap 10/31/20 [Macrobid] Cyclobenzaprine [Flexeril] 10 mg PO TID PRN #15 tab 04/20/23 Ibuprofen [Motrin] 600 mg PO Q8HR PRN #20 tab 04/20/23 Allergies Allergy/AdvReac Type Severity Reaction Status Date / Time No Known Allergies Allergy Verified 04/20/23 00:09 Review of Systems ROS Statement: Those systems with pertinent positive or pertinent negative responses have been documented in the HPI. ROS Other: All systems not noted in ROS Statement are negative. Past Medical History Past Medical History: Diabetes Mellitus History of Any Multi-Drug Resistant Organisms: None Reported Past Surgical History: No Surgical Hx Reported Past Psychological History: No Psychological Hx Reported Smoking Status: Current every day smoker Past Alcohol Use History: None Reported Past Drug Use History: Methamphetamine General Exam Limitations: no limitations General appearance: alert, in no apparent distress Head exam: Present: atraumatic, normocephalic, normal inspection Eye exam: Present: normal appearance, PERRL, EOMI. Absent: scleral icterus, conjunctival injection, periorbital swelling Neck exam: Present: normal inspection, full ROM. Absent: tenderness, meningismus, lymphadenopathy Respiratory exam: Present: normal lung sounds bilaterally. Absent: respiratory distress, wheezes, rales, rhonchi, stridor Cardiovascular Exam: Present: regular rate, normal rhythm, normal heart sounds. Absent: systolic murmur, diastolic murmur, rubs, gallop, clicks GI/Abdominal exam: Present: soft, normal bowel sounds. Absent: distended, tenderness, guarding, rebound, rigid Extremities exam: Present: other (Lower extremity strength equal bilaterally neurovascular intact equal color equal warmth) Back exam: Present: full ROM, tenderness, paraspinal tenderness, vertebral tenderness. Absent: normal inspection (Large abrasion lumbar spine) Neurological exam: Present: reflexes normal. Absent: motor sensory deficit Course Vital Signs 04/20/23 00:07 Temperature 97.8 F Pulse Rate 97 Respiratory 18 Rate Blood Pressure 149/94 O2 Sat by Pulse 100 Oximetry Medical Decision Making - Medical Decision Making Was pt. sent in by a medical professional or institution (, PA, FARM ASSISTANT, urgent care, hospital, or [facility]...) When possible be specific @ -No Did you speak to anyone other than the patient for history (EMS, parent, family, police, friend...)? What history was obtained from this source @ -No Did you review nursing and triage notes (agree or disagree)? Why? @ -I reviewed and agree with nursing and triage notes Were old charts reviewed (outside hosp., previous admission, EMS record, old EKG, old radiological studies, urgent care reports/EKG's, [facility] records)? Report findings @ -No old charts were reviewed Differential Diagnosis (chest pain, altered mental status, abdominal pain women, abdominal pain men, vaginal bleeding, weakness, fever, dyspnea, syncope, headache, dizziness, GI bleed, back pain, seizure, CVA, palpatations, mental health, musculoskeletal)? @ -Differential Back Pain: Strain, zoster, cauda equina syndrome, epidural abscess, vertebral osteomyelitis, discitis, fracture, subluxation, disc herniation, DJD, spinal stenosis, dissection, AAA, pancreatitis, peptic ulcer disease, pyelonephritis, kidney stone, this is not meant to be an all-inclusive list. EKG interpreted by me (3pts min.). @ -None X-rays interpreted by me (1pt min.). @ -X-ray lumbar spine shows no acute fracture dislocation or malalignment CT interpreted by me (1pt min.). @ -None done U/S interpreted by me (1pt. min.). @ -None done What testing was considered but not performed or refused? (CT, X-rays, U/S, labs)? Why? @ -None What meds were considered but not given or refused? Why? @ -None Did you discuss the management of the patient with other professionals (professionals i.e. , PA, FARM ASSISTANT, lab, RT, psych nurse, mental health social worker, camp recreation specialist, teacher, general service officer, case management manager)? Give summary @ -No Was smoking cessation discussed for >3mins.? @ -No Was critical care preformed (if so, how long)? @ -No Were there social determinants of health that impacted care today? How? (Homelessness, low income, unemployed, alcoholism, drug addiction, transportation, low edu. Level, literacy, decrease access to med. care, skilled nursing, rehab)? @ -No Was there de-escalation of care discussed even if they declined (Discuss DNR or withdrawal of care, Hospice)? DNR status @ -No What co-morbidities impacted this encounter? (DM, HTN, Smoking, COPD, CAD, Cancer, CVA, ARF, Chemo, Hep., AIDS, mental health diagnosis, sleep apnea, morbid obesity)? @ -None Was patient admitted / discharged? Hospital course, mention meds given and route, prescriptions, significant lab abnormalities, going to OR and other pertinent info. @ -Discharge patient has lumbar contusion, low back abrasion with no acute fracture on x-ray patient's neurologically intact with no red flag symptoms be discharged with pain control return parameters were discussed Undiagnosed new problem with uncertain prognosis? @ -No] Drug Therapy requiring intensive monitoring for toxicity (Heparin, Nitro, Insulin, Cardizem)? @ -[No] Were any procedures done? @ -[No] Diagnosis/symptom? @ -[Fall, lumbar contusion] Acute, or Chronic, or Acute on Chronic? @ -Acute Uncomplicated (without systemic symptoms) or Complicated (systemic symptoms)? @ -Uncomplicated Side effects of treatment? @ -[No] Exacerbation, Progression, or Severe Exacerbation? @ -[No] Poses a threat to life or bodily function? How? (Chest pain, [place], [place], pneumonia, PE, COPD, DKA, ARF, appy, cholecystitis, CVA, Diverticulitis, Homicidal, Suicidal, threat to staff... and all critical care pts) @ -[No] Disposition Clinical Impression: Fall, Lumbar contusion Disposition: HOME SELF-CARE Condition: Stable Instructions (If sedation given, give patient instructions): Acute Low Back Pain (ED) Prescriptions: Cyclobenzaprine [Flexeril] 10 mg PO TID PRN #15 tab PRN Reason: Muscle Spasm Ibuprofen [Motrin] 600 mg PO Q8HR PRN #20 tab PRN Reason: Pain Is patient prescribed a controlled substance at d/c from ED?: No Referrals: Rolf Huber MD [Primary Care Provider] - 1-2 days Time of Disposition: 01:12
[2023-04-20 01:36] VITALS: BP 143/82; PULSE 78; RESP 16; TEMP 97.9
--- NOTE | 2023-04-20 01:41 | XR ---
EXAM: XR Lumbosacral Spine, 4 or 5 Views CLINICAL HISTORY: ITS.REASON XR Reason: pain TECHNIQUE: Frontal, lateral and bilateral oblique views of the lumbar spine. COMPARISON: No previous studies. FINDINGS: Vertebrae: Unremarkable. Normal alignment of the lumbar spine. No spondylolysis. No compression fractures. Sacrum/coccyx: Mild osteoarthritic changes about the sacroiliac joint. No acute fracture. Disc spaces: Mild degenerative disc disease. Soft tissues: Unremarkable. IMPRESSION: 1. Mild degenerative disc disease. 2. No acute injury to the lumbar spine.
== END 2023-04-20 01:35 | disposition home or self-care (01) ==
LOC: EC 23:58
DX: S30.0XXA Contusion of lower back and pelvis, initial encounter (principal); E11.9 Type 2 diabetes mellitus without complications; F17.200 Nicotine dependence, unspecified, uncomplicated; Z79.4 Long term (current) use of insulin; W01.0XXA Fall on same level from slipping, tripping and stumbling without subsequent striking against object, initial encounter
CPT/HCPCS: 72110; 99283; 96372; J1170